=== PATIENT | male | born 1995 | race Caucasian/White ===

== ENCOUNTER 2019-07-29 10:39 | Inpatient (IN) | payer OTHER ==
[~2019-07-29] VITALS: Ht 160 cm; Wt 69.9 kg
[2019-07-29 10:45] VITALS: BP 130/79
[2019-07-29] MEDS ORDERED: KETOROLAC 30 MG/ML VIAL IVP ONE (12:15)
[2019-07-29] MEDS ORDERED: NACL 0.9% 1,000 ML IV ONE (12:15)
[2019-07-29 12:55] LABS: BASOPHILS # (AUTO) 0.1 K/uL (0.00-0.22); BASOPHILS % (AUTO) 0.5 % (0.0-2.0); EOSINOPHILS % (AUTO) 0.1 % (0.0-4.0); HEMATOCRIT 45.8 % (36-52); HEMOGLOBIN 15.4 g/dL (12.0-18.0); LYMPHOCYTES # (AUTO) 1.6 K/uL (2.0-11.5); LYMPHOCYTES % (AUTO) 9.8 % (20.5-51.1); MEAN CORPUSCULAR HEMOGLOBIN 29 pg (27-31); MEAN CORPUSCULAR HGB CONC 34 g/dL (33-37); MEAN CORPUSCULAR VOLUME 87.2 fL (80-94); MONOCYTES # (AUTO) 1.1 K/uL (0.8-1.0); MONOCYTES % (AUTO) 6.8 % (1.7-9.3); NEUTROPHILS # (AUTO) 13.9 K/uL (1.8-7.7); NEUTROPHILS % (AUTO) 82.8 % (42.2-75.2); PLATELET COUNT (AUTO) 225 K/uL (140-450); RED BLOOD CELL COUNT(AUTO) 5.26 MIL/uL (4.20-6.10); RED CELL DISTRIBUTION WIDTH 13.9 % (11.6-13.7); WHITE BLOOD COUNT (AUTO) 16.8 K/uL (4.8-10.8)
[2019-07-29 13:04] LABS: APPEARANCE,URINE CLEAR (CLEAR); BILIRUBIN,URINE NEGATIVE (NEGATIVE); BLOOD, URINE NEGATIVE (NEGATIVE); COLOR,URINE YELLOW (YELLOW); NITRITE, URINE NEGATIVE (NEGATIVE); PH,URINE 7.5 (5.0-9.0); UGLUCOSE NEGATIVE (NEGATIVE)
[2019-07-29 13:05] LABS: LEUKOCYTE ESTERASE ,URINE NEGATIVE (NEGATIVE)
[2019-07-29] MEDS ORDERED: CEFEPIME 1,000 MG in DEXTROSE 5% 50 ML IV ONE (13:05)
[2019-07-29] MEDS ORDERED: CEFEPIME 1,000 MG VIAL ONE (13:15)
[2019-07-29 13:45] LABS: ALBUMIN 4.3 g/dL (3.4-5.0); ANION GAP 14.8 (8-16); CARBON DIOXIDE 27.9 mmol/L (21-32); POTASSIUM 3.7 mmol/L (3.5-5.1); TOTAL BILIRUBIN 0.6 mg/dL (0.0-1.0)
[2019-07-29 13:49] LABS: CREATININE 1.1 mg/dL (0.6-1.3)
[2019-07-29] MEDS ORDERED: ACETAMINOPHEN 325 MG TAB PO PRN (14:05)
[2019-07-29] MEDS ORDERED: MAGNESIUM HYDROXIDE 2400 MG/30 ML UDC PO PRN (14:05)
[2019-07-29] MEDS ORDERED: DEXT 5% / NACL 0.45% 1,000 ML IV SCH (14:05)
[2019-07-29] MEDS ORDERED: HYDROmorphone 1 MG/ML AMP IVP PRN ×2 (14:05→15:50)
[2019-07-29] MEDS ORDERED: HYDROcodone/APAP 5/325 MG 1 TAB TAB PO PRN (14:05)
[2019-07-29] MEDS ORDERED: ZOLPIDEM 5 MG TAB PO PRN (14:05)
[2019-07-29] MEDS ORDERED: ONDANSETRON 4 MG/2 ML VIAL IVP PRN ×2 (14:05→15:50)
[2019-07-29 14:48] LABS: PROTHROMBIN TIME 10.4 secs (10.8-13.4)
[2019-07-29] MEDS ORDERED: BUPIVACAINE-MPF 0.25% 30 ML VIAL INJ ONE (15:12)
[2019-07-29] MEDS ORDERED: fentaNYL 0.05 MG/ML VIAL ONE (15:26)
[2019-07-29] MEDS ORDERED: ONDANSETRON 4 MG/2 ML VIAL ONE (15:26)
[2019-07-29] MEDS ORDERED: DESFLURANE 240 ML BTL INH ONE (15:26)
[2019-07-29] MEDS ORDERED: GLYCOPYRROLATE 0.2 MG/ML VIAL ONE (15:26)
[2019-07-29] MEDS ORDERED: ROCURONIUM 50 MG/5 ML VIAL IV ONE (15:26)
[2019-07-29] MEDS ORDERED: HYDROmorphone PFS 2 MG/ML SYR ONE (15:26)
[2019-07-29] MEDS ORDERED: DEXAMETHASONE 4 MG/ML VIAL ONE (15:26)
[2019-07-29] MEDS ORDERED: PROPOFOL 200 MG/20 ML VIAL IV ONE (15:26)
[2019-07-29] MEDS ORDERED: SUCCINYLCHOLINE CHLORIDE 200 MG/10 ML VIAL IVP ONE (15:26)
[2019-07-29] MEDS ORDERED: NEOSTIGMINE 1:1000 10 MG/10 ML VIAL ONE (15:26)
[2019-07-29 17:15] VITALS: BP 134/73
[2019-07-29] MEDS: DEXT 5% / NACL 0.45% 1,000 ML IV SCH (17:30)
[2019-07-30] VITALS: BP 121/70
[2019-07-30] MEDS: DEXT 5% / NACL 0.45% 1,000 ML IV SCH ×2 (06:00→13:31)
[2019-07-30 07:25] LABS: BASOPHILS % (AUTO) 0.2 % (0.0-2.0); HEMATOCRIT 41.1 % (36-52); HEMOGLOBIN 13.8 g/dL (12.0-18.0); LYMPHOCYTES # (AUTO) 1.3 K/uL (2.0-11.5); LYMPHOCYTES % (AUTO) 13.9 % (20.5-51.1); MEAN CORPUSCULAR HEMOGLOBIN 30 pg (27-31); MEAN CORPUSCULAR HGB CONC 34 g/dL (33-37); MEAN CORPUSCULAR VOLUME 88.1 fL (80-94); MONOCYTES # (AUTO) 0.7 K/uL (0.8-1.0); MONOCYTES % (AUTO) 7.3 % (1.7-9.3); NEUTROPHILS # (AUTO) 7.2 K/uL (1.8-7.7); NEUTROPHILS % (AUTO) 78.6 % (42.2-75.2); PLATELET COUNT (AUTO) 203 K/uL (140-450); RED BLOOD CELL COUNT(AUTO) 4.66 MIL/uL (4.20-6.10); RED CELL DISTRIBUTION WIDTH 13.9 % (11.6-13.7); WHITE BLOOD COUNT (AUTO) 9.1 K/uL (4.8-10.8)
[2019-07-30 08:00] VITALS: BP 115/67
[2019-07-30] MEDS ORDERED: ACET-9525 PO (10:36)
[2019-07-30 10:40] LABS: ANION GAP 13.8 (8-16); CARBON DIOXIDE 27.1 mmol/L (21-32); POTASSIUM 3.9 mmol/L (3.5-5.1)
[2019-07-30 16:00] VITALS: BP 112/67
[2019-07-30 17:16] VITALS: BP 112/67
== END 2019-07-30 18:18 | disposition home or self-care (01) | DRG 234 ==
LOC: MED 10:39 → MTU 14:29
PROVIDERS: ADMIT Hospitalist; ATTEND Hospitalist
PROC: 0DTJ4ZZ Resection of Appendix, Percutaneous Endoscopic Approach (ICD-10-PCS; principal; 2019-07-29 15:00)
DX: K35.80 Unspecified acute appendicitis (principal); R65.10 Systemic inflammatory response syndrome (SIRS) of non-infectious origin without acute organ dysfunction; D72.829 Elevated white blood cell count, unspecified; E86.9 Volume depletion, unspecified
CPT/HCPCS: 36415; 80048; 80053; 81003; 82374; 85025; 85610; 85730; 86886; 86900; 86901; 87040; 87081; 88304; 96361; 96365; 96375; 99291; J0330; J0690; J0692; J1100; J1170; J1885; J2405; J2704; J2710; J3010; J3490; J7030; J7060